=== PATIENT | male | born 1965 | race Caucasian/White ===

== ENCOUNTER 2022-07-14 09:01 | Emergency (ER) | payer OTHER ==
[~2022-07-14] VITALS: Ht 162.6 cm; Wt 86.2 kg
--- NOTE | 2022-07-14 09:09 | NUR ---
BIB [facility]ALK[facility],C/O DYSURIA AND LEFT TESTICULAR PAIN X 3 DAYS. PAIN 8/10 ON PAIN SCALE. AWAITING MD GONZALEZ.
--- NOTE | 2022-07-14 09:19 | NUR ---
pt on bed still having bladder pain franki 2days, with mid dysuria. took TETRACYCLINE 500MG TID X3DAYS WITH RELIEF, THUS HE HAD DRINKING SPREE X 3DAYS. STARTED LAST THU-THURSDAY, THEN HE NOTICED DYSURIA AND LT TESTICULAR PAIN. URINE NOTED DARK YELLOW. MD AT BEDSIDE FOR CARLOS
--- NOTE | 2022-07-14 09:22 | NUR ---
URINE COLLECTED AND SENT
[2022-07-14] MEDS ORDERED: ONDANSETRON HCL/PF 4 MG/2 ML VIAL ONE ×2 (09:29→11:03)
[2022-07-14] MEDS ORDERED: ONDANSETRON HCL/PF 4 MG/2 ML VIAL IVP ONE (09:30)
[2022-07-14] MEDS ORDERED: MORPHINE SULFATE INJ 4 MG/ML DISP.SYRIN ONE (09:30)
[2022-07-14] MEDS ORDERED: MORPHINE SULFATE INJ 2 MG/ML DISP.SYRIN IV ONE (09:30)
--- NOTE | 2022-07-14 09:43 | NUR ---
IV ESTABLISHED. L AC 20G
--- NOTE | 2022-07-14 09:45 | NUR ---
BLOOD DRAWN AND SENT TO LAB
[2022-07-14 09:54] LABS: BILIRUBIN,URINE NEGATIVE (NEGATIVE); COLOR,URINE YELLOW (YELLOW); LEUKOCYTE ESTERASE ,URINE 1+ (NEGATIVE); NITRITE, URINE POSITIVE (NEGATIVE); PROTEIN,URINE TRACE mg/dl (NEGATIVE); UGLUCOSE NEGATIVE (NEGATIVE); UROBILINOGEN,URINE 0.2 EU/dL (0.2)
[2022-07-14 10:09] LABS: CALCIUM, SERUM 8.7 mg/dL (8.5-10.1); CREATININE 1.4 mg/dL (0.6-1.3); POTASSIUM 3.6 mmol/L (3.5-5.1)
--- NOTE | 2022-07-14 10:20 | NUR ---
US AT BEDSIDE
[2022-07-14 10:36] LABS: BASOPHILS # (AUTO) 0.1 K/uL (0.0-0.2); BASOPHILS % (AUTO) 0.5 % (0.0-2.0); EOSINOPHILS % (AUTO) 0.3 % (0.0-6.0); HEMATOCRIT 43 % (39-51); HEMOGLOBIN 13.9 g/dL (13.5-17.5); LYMPHOCYTES # (AUTO) 0.9 K/uL (0.8-4.8); LYMPHOCYTES % (AUTO) 6.1 % (20.0-44.0); MEAN CORPUSCULAR HGB CONC 32 g/dl (31.0-36.0); MEAN CORPUSCULAR VOLUME 78 fL (80-96); MONOCYTES % (AUTO) 6.6 % (2.0-12.0); NEUTROPHILS # (AUTO) 13.4 K/uL (1.8-8.9); NEUTROPHILS % (AUTO) 86.5 % (43.0-81.0); PLATELET COUNT (AUTO) 341 K/uL (150-450); RED BLOOD CELL COUNT(AUTO) 5.53 MIL/uL (4.5-6.0); WHITE BLOOD COUNT (AUTO) 15.5 K/uL (4.3-11.0)
[2022-07-14 10:57] LABS: BACTERIA,URINE Many /HPF (None Seen); SQUAMOUS EPITHELIAL CELL,UR Rare /HPF (None Seen); WBC,URINE 51-80 /HPF (0-3)
[2022-07-14] MEDS ORDERED: ONDANSETRON HCL/PF - ER 4 MG/2 ML VIAL IV ONE (11:00)
[2022-07-14] MEDS ORDERED: HYDROMORPHONE 1 MG/1 ML DISP.SYRIN IV ONE (11:00)
[2022-07-14] MEDS ORDERED: HYDROMORPHONE 1 MG/1 ML DISP.SYRIN ONE (11:03)
[2022-07-14] MEDS ORDERED: LIDOCAINE 1% INJ 50 ML MDV IJ ONE (11:13)
[2022-07-14] MEDS ORDERED: CEFTRIAXONE 1 G VIAL ONE (11:14)
[2022-07-14] MEDS ORDERED: DOXYCYCLINE HYCLATE (100 MG) 100 MG TABLET ONE (11:14)
[2022-07-14 11:23] LABS: ALBUMIN 3.1 g/dL (3.4-5.0); BILIRUBIN,DIRECT 0.1 mg/dL (0.0-0.2); BILIRUBIN,TOTAL 0.5 mg/dL (0.2-1.0); TOTAL PROTEIN, SERUM 7.4 g/dL (6.4-8.2)
[2022-07-14] MEDS ORDERED: DOXYCYCLINE HYCLATE (100 MG) 100 MG TABLET PO ONE (11:30)
[2022-07-14] MEDS ORDERED: CEFTRIAXONE 1 G VIAL IM ONE (11:30)
--- NOTE | 2022-07-14 12:24 | NUR ---
ULTRA SOUND AT BEDSIDE
--- NOTE | 2022-07-14 12:50 | NUR ---
patient taken to ct via jose guadal[facility]
[2022-07-14] MEDS ORDERED: DOXY100T2 PO (15:19)
[2022-07-14] MEDS ORDERED: TYL2T PO (15:43)
[2022-07-14] MEDS ORDERED: TRAM50TA2 PO (15:43)
[2022-07-14 16:10] VITALS: BP 112/81
--- NOTE | 2022-07-14 16:11 | NUR ---
Patient discharged to home in stable condition, ambulating. Written and verbal after care instructions given. Patient verbalizes understanding of instruction.
== END 2022-07-14 16:11 | disposition home or self-care (01) ==
LOC: ER 10:07
DX: N45.1 Epididymitis (principal); K40.90 Unilateral inguinal hernia, without obstruction or gangrene, not specified as recurrent; N45.2 Orchitis
CPT/HCPCS: 99285; 74176; 96374; 76705; 96375; 96376; 76870; 85025; 80048; 87086; 83690; 80076; 81001; 36415; 96372; J3490; J2270; J0696; J2405 ×2; J1170